=== PATIENT | female | born 1945 ===

== ENCOUNTER 2023-08-08 17:49 | Inpatient (IN) ==
[2023-08-08] MEDS ORDERED: 0.9 % SODIUM CHLORIDE 1,000 ML IV ONE (18:34)
[2023-08-08 19:02] LABS: POC Calcium, Ionized 1.05 (1.16-1.32); POC Creatinine 1.8 (0.6-1.2)
[2023-08-08 19:06] LABS: POC INR 2.4 (0.8-1.2); POC Pro Time 27.3 (11.9-14.5)
[2023-08-08 19:41] LABS: Basophils # (Auto) 0.01 K/mcL (0.00-0.30); Basophils % (Auto) 0.1 % (0.0-2.0); Eosinophils # (Auto) 0.01 K/mcL (0.00-0.70); Eosinophils % (Auto) 0.1 % (0.0-7.0); Hematocrit 37.5 % (34.1-44.9); Hemoglobin 12.4 g/dL (11.2-15.7); Lymphocytes # (Auto) 1.19 K/mcL (1.50-4.80); Lymphocytes % (Auto) 16.5 % (15.5-49.0); Mean Cell Volume 92.1 fL (80.0-100.0); Mean Corpuscular HGB Conc 33.1 g/dL (31.0-36.0); Mean Platelet Volume 9.7 fL (8.8-12.5); Monocytes % (Auto) 9.7 % (1.0-12.0); Neutrophils % (Auto) 73.2 % (38.0-78.0); Platelet Count 318 K/mcL (140-440); RBC 4.07 M/mcL (3.59-5.38); Red Cell Distribution Width 13.5 % (11.5-14.5); WBC 7.2 K/mcL (4.5-11.0)
[2023-08-08] MEDS ORDERED: IPRATROPIUM/ALBUTEROL 3 ML AMPUL.NEB NEB ONE (21:05)
[2023-08-08] MEDS ORDERED: guaiFENesin/DEXTROMETHORPHAN 5ML UD CUP PO ONE (22:17)
[2023-08-08] MEDS ORDERED: DEXAMETHASONE 10 MG/ML VIAL IV ONE (22:38)
[2023-08-08] MEDS ORDERED: ACETAMINOPHEN 325 MG TABLET PO PRN (23:23)
[2023-08-08] MEDS ORDERED: ONDANSETRON 4 MG/2 ML VIAL IV PRN (23:23)
[2023-08-09] MEDS: 0.9 % SODIUM CHLORIDE 10 ML SYRINGE IV SCH ×5 (04:31→21:50)
[2023-08-09 07:40] LABS: Basophils # (Auto) 0.02 K/mcL (0.00-0.30); Basophils % (Auto) 0.2 % (0.0-2.0); Eosinophils # (Auto) 0 K/mcL (0.00-0.70); Eosinophils % (Auto) 0 % (0.0-7.0); Hematocrit 35.5 % (34.1-44.9); Hemoglobin 11.7 g/dL (11.2-15.7); Lymphocytes # (Auto) 0.55 K/mcL (1.50-4.80); Lymphocytes % (Auto) 5.2 % (15.5-49.0); Mean Cell Volume 92.2 fL (80.0-100.0); Mean Platelet Volume 9.6 fL (8.8-12.5); Monocytes % (Auto) 3.8 % (1.0-12.0); Neutrophils % (Auto) 90.4 % (38.0-78.0); Platelet Count 293 K/mcL (140-440); RBC 3.85 M/mcL (3.59-5.38); Red Cell Distribution Width 13.4 % (11.5-14.5); WBC 10.6 K/mcL (4.5-11.0)
[2023-08-09 08:06] LABS: Blood Urea Nitrogen 22 mg/dL (8-23); Calcium 8.4 mg/dL (8.6-10.4); Carbon Dioxide 18 mmol/L (22-30); Chloride 103 mmol/L (96-108); Glomerular Filtration Rate 33; Glucose 150 mg/dL (70-105)
[2023-08-09] MEDS ORDERED: REMDESIVIR 200 MG in 0.9 % SODIUM CHLORIDE 250 ML IV ONE (09:00)
[2023-08-09] MEDS ORDERED: DOCUSATE SODIUM 100 MG CAPSULE PO SCH (09:00)
[2023-08-09] MEDS ORDERED: MAGNESIUM SULFATE 2 GM/50 ML BAG IV PRN (09:15)
[2023-08-09] MEDS ORDERED: IPRATROPIUM/ALBUTEROL 3 ML AMPUL.NEB NEB PRN (09:15)
[2023-08-09] MEDS ORDERED: POLYETHYLENE GLYCOL 3350 17 GM PACKET PO PRN (09:15)
[2023-08-09] MEDS ORDERED: SENNOSIDES 1 TABLET PO PRN (09:15)
[2023-08-09] MEDS ORDERED: POTASSIUM CHLORIDE 20 MEQ TABLET PO PRN ×2 (09:15)
[2023-08-09] MEDS ORDERED: ENALAPRILAT 1.25 MG/ML VIAL IV PRN (09:15)
[2023-08-09] MEDS ORDERED: ONDANSETRON 4 MG/2 ML VIAL IV PRN (09:15)
[2023-08-09] MEDS ORDERED: REMDESIVIR 100 MG in 0.9 % SODIUM CHLORIDE 250 ML IV SCH (09:15)
[2023-08-09] MEDS ORDERED: POTASSIUM CHLORIDE 40 MEQ in DEXTROSE 5% IN WATER 500 ML IV PRN (09:15)
[2023-08-09 09:49] LABS: ALT/SGPT 10 U/L (<40); AST/SGOT 23 U/L (<32)
[2023-08-09 09:49] LABS: C-Reactive Protein 10.1 mg/dL (0.03-0.80)
[2023-08-09] MEDS: FAMOTIDINE 20 MG TABLET PO SCH ×2 (09:56→21:43)
[2023-08-09 10:00] LABS: Appearance,Urine CLOUDY (Clear); Bacteria,Urine MOD /hpf (0); Bilirubin,Urine Negative (Negative); Color,Urine YELLOW; Culture Indicated,Urine Yes; Glucose,Urine (UA) Negative (Negative); Ketones,Urine 5 mg/dL (Negative); Leukocyte Esterase,Urine Negative /uL (Negative); Mucus,Urine MOD /hpf; Nitrate,Urine Negative (Negative); Protein,Urine Negative (Negative); Specific Gravity,Urine 1.012 (1.000-1.035); Urine Granular Cast 7 /lph (0-0); Urine Hyaline Cast 7 /lph (0-2); Urine RBC 10 /hpf (0-3); Urine Squamous Epithelial Cell < 1 /hpf (0-4); Urine Transitional Epi Cells < 1 /hpf (0-2); Urine WBC 6 /hpf (0-4); Urine Waxy Cast 1 /lph (0-0); Urobilinogen,Urine Negative
[2023-08-09 10:02] LABS: Ferritin 348.3 ng/mL (30.0-400.0)
[2023-08-09 10:16] LABS: INR 2.1 (0.9-1.1); Prothrombin Time 24.5 sec (11.9-14.5)
[2023-08-09 11:23] LABS: Band Neutrophils % 36 % (0-10); Lymphocytes % 3 % (15-49); Monocytes % (Manual) 2 % (1-12); Platelet Estimate NORMAL (Normal); RBC Morphology NORMAL (Normal); Segmented Neutrophils % 59 % (38-78)
[2023-08-09] MEDS: cefTRIAXone 1 GM VIAL IV SCH (12:00)
[2023-08-09] MEDS: AZITHROMYCIN 500 MG in DEXTROSE 5% IN WATER 250 ML IV SCH (12:00)
[2023-08-09] MEDS: DEXAMETHASONE 4 MG TABLET PO SCH (13:10)
[2023-08-09] MEDS ORDERED: WARFARIN 5 MG TABLET PO ONE (14:00)
[2023-08-09] MEDS ORDERED: SENNOSIDES 1 TABLET PO SCH (21:00)
[2023-08-09] MEDS: DOCUSATE SODIUM 100 MG CAPSULE PO SCH (21:43)
[2023-08-10] MEDS: 0.9 % SODIUM CHLORIDE 10 ML SYRINGE IV SCH ×6 (04:34→20:00)
[2023-08-10 07:12] LABS: Hematocrit 32.4 % (34.1-44.9); Hemoglobin 10.7 g/dL (11.2-15.7); Mean Cell Volume 90.3 fL (80.0-100.0); Mean Platelet Volume 9.8 fL (8.8-12.5); Platelet Count 309 K/mcL (140-440); RBC 3.59 M/mcL (3.59-5.38); Red Cell Distribution Width 13.6 % (11.5-14.5); WBC 12.2 K/mcL (4.5-11.0)
[2023-08-10 07:34] LABS: ALT/SGPT 14 U/L (<40); AST/SGOT 22 U/L (<32); Albumin 2.8 gm/dL (3.2-5.2); Alkaline Phosphatase 61 U/L (39-117); Bilirubin,Direct < 0.2 mg/dL (0-0.3); Bilirubin,Total 0.2 mg/dL (0.1-1.0); Blood Urea Nitrogen 32 mg/dL (8-23); Calcium 8.3 mg/dL (8.6-10.4); Carbon Dioxide 18 mmol/L (22-30); Chloride 103 mmol/L (96-108); Globulin 2.8 gm/dL (2.2-3.7); Glomerular Filtration Rate 39; Glucose 115 mg/dL (70-105); Lactate Dehydrogenase 232 U/L (135-225); Phosphorous 3.6 mg/dL (2.5-4.5); Triglycerides 69 mg/dL (<150); Uric Acid 5.6 mg/dL (2.5-8.0)
[2023-08-10 07:37] LABS: INR 2.5 (0.9-1.1); Prothrombin Time 28.2 sec (11.9-14.5)
[2023-08-10] MEDS: FAMOTIDINE 20 MG TABLET PO SCH ×2 (08:19→19:42)
[2023-08-10] MEDS: DEXAMETHASONE 4 MG TABLET PO SCH (08:19)
[2023-08-10] MEDS: DOCUSATE SODIUM 100 MG CAPSULE PO SCH ×2 (08:19→19:42)
[2023-08-10] MEDS: cefTRIAXone 1 GM VIAL IV SCH (08:19)
[2023-08-10] MEDS: LISINOPRIL 10 MG TABLET PO SCH (08:19)
[2023-08-10 08:26] LABS: Band Neutrophils % 19 % (0-10); Lymphocytes % 6 % (15-49); Monocytes % (Manual) 4 % (1-12); Platelet Estimate NORMAL (Normal); RBC Morphology NORMAL (Normal); Segmented Neutrophils % 71 % (38-78)
[2023-08-10] MEDS: REMDESIVIR 100 MG in 0.9 % SODIUM CHLORIDE 250 ML IV SCH (09:24)
[2023-08-10] MEDS: AZITHROMYCIN 500 MG in DEXTROSE 5% IN WATER 250 ML IV SCH (11:11)
[2023-08-10] MEDS: SODIUM BICARBONATE 650 MG TABLET PO SCH ×2 (11:11→19:42)
[2023-08-10] MEDS ORDERED: WARFARIN 3 MG TABLET PO ONE (14:00)
[2023-08-11] MEDS: 0.9 % SODIUM CHLORIDE 10 ML SYRINGE IV SCH ×2 (04:50)
[2023-08-11 06:56] LABS: Hematocrit 32.9 % (34.1-44.9); Mean Cell Volume 89.9 fL (80.0-100.0); Mean Corpuscular HGB Conc 33.4 g/dL (31.0-36.0); Mean Platelet Volume 10.1 fL (8.8-12.5); Platelet Count 352 K/mcL (140-440); RBC 3.66 M/mcL (3.59-5.38); Red Cell Distribution Width 13.8 % (11.5-14.5); WBC 11.2 K/mcL (4.5-11.0)
[2023-08-11 07:27] LABS: ALT/SGPT 14 U/L (<40); AST/SGOT 18 U/L (<32); Albumin 2.9 gm/dL (3.2-5.2); Albumin/Globulin Ratio 1.1 (1.0-2.3); Alkaline Phosphatase 55 U/L (39-117); Bilirubin,Direct < 0.2 mg/dL (0-0.3); Bilirubin,Total < 0.2 mg/dL (0.1-1.0); Blood Urea Nitrogen 35 mg/dL (8-23); Calcium 8.6 mg/dL (8.6-10.4); Carbon Dioxide 21 mmol/L (22-30); Chloride 104 mmol/L (96-108); Globulin 2.7 gm/dL (2.2-3.7); Glomerular Filtration Rate 39; Glucose 122 mg/dL (70-105); Lactate Dehydrogenase 183 U/L (135-225); Phosphorous 3.4 mg/dL (2.5-4.5); Triglycerides 72 mg/dL (<150); Uric Acid 5.9 mg/dL (2.5-8.0)
[2023-08-11 07:30] LABS: INR 2.7 (0.9-1.1); Prothrombin Time 29.9 sec (11.9-14.5)
[2023-08-11] MEDS: DEXAMETHASONE 4 MG TABLET PO SCH (08:41)
[2023-08-11] MEDS: cefTRIAXone 1 GM VIAL IV SCH (08:41)
[2023-08-11] MEDS: LISINOPRIL 10 MG TABLET PO SCH (08:41)
[2023-08-11] MEDS: FAMOTIDINE 20 MG TABLET PO SCH (08:41)
[2023-08-11] MEDS: DOCUSATE SODIUM 100 MG CAPSULE PO SCH (08:42)
[2023-08-11] MEDS: AZITHROMYCIN 500 MG in DEXTROSE 5% IN WATER 250 ML IV SCH (11:23)
[2023-08-11 11:45] LABS: Band Neutrophils % 8 % (0-10); Lymphocytes % 14 % (15-49); Monocytes % (Manual) 1 % (1-12); Platelet Estimate NORMAL (Normal); RBC Morphology NORMAL (Normal); Segmented Neutrophils % 77 % (38-78)
[2023-08-11] MEDS: REMDESIVIR 100 MG in 0.9 % SODIUM CHLORIDE 250 ML IV SCH (12:53)
[2023-08-11] MEDS ORDERED: WARFARIN 3 MG TABLET PO SCH (14:00)
[2023-08-12] MEDS ORDERED: FAMOTIDINE 20 MG TABLET PO SCH (09:00)
== END 2023-08-11 12:15 | disposition home or self-care (01) | DRG 189 ==
LOC: ED 17:49 → MEDSUR 23:48
PROVIDERS: ADMIT Internal Medicine; ATTEND Internal Medicine